=== PATIENT | male | born 1985 | race Caucasian/White ===

== ENCOUNTER 2020-11-18 02:32 | Emergency (ER) | payer OTHER ==
[~2020-11-18] VITALS: Ht 177.8 cm; Wt 81.7 kg
[~2020-11-18 02:32] MED LIST: CLARINEX5 MG PO; PREDNISONE 20 M20 MG PO; VALIUM5 MG PO
[2020-11-18] MEDS ORDERED: BACTRIM DS TAB1 EACH PO (05:31)
[2020-11-18] MEDS ORDERED: IBUPROFEN 800800 MG PO (05:31)
[2020-11-18 06:32] VITALS: BP 121/70
[2020-11-19] MEDS ORDERED: HYDROCODON-ACE1 EAC7 PO (09:59)
[2020-11-19] MEDS ORDERED: BACTRIM DS TAB1 EACH PO (09:59)
[2020-11-19] MEDS ORDERED: KEFLEX250 MG PO (09:59)
== END 2020-11-18 06:32 | disposition home or self-care (01) ==
LOC: M.ERS 02:32
DX: L02.214 Cutaneous abscess of groin (principal)

== ENCOUNTER 2020-11-19 08:19 | Emergency (ER) | payer OTHER ==
[~2020-11-19] VITALS: Ht 177.8 cm; Wt 81.7 kg
[~2020-11-19 08:19] MED LIST changes: +BACTRIM DS TAB1 EACH PO; +IBUPROFEN 800800 MG PO
[2020-11-19] MEDS ORDERED: BACTRIM DS TAB1 EACH PO (09:59)
[2020-11-19] MEDS ORDERED: KEFLEX250 MG PO (09:59)
[2020-11-19] MEDS ORDERED: HYDROCODON-ACE1 EAC7 PO (09:59)
[2020-11-19 10:10] VITALS: BP 124/68
== END 2020-11-19 10:11 | disposition home or self-care (01) ==
LOC: M.ERS 08:19
DX: S31.133A Puncture wound of abdominal wall without foreign body, right lower quadrant without penetration into peritoneal cavity, initial encounter (principal); L03.314 Cellulitis of groin; X58.XXXA Exposure to other specified factors, initial encounter; Y93.89 Activity, other specified; Y92.89 Other specified places as the place of occurrence of the external cause; Y99.8 Other external cause status